=== PATIENT | male | born 1995 | race American Indian/Alaskan Native ===

== ENCOUNTER 2018-01-09 17:55 | Emergency (ER) | payer MEDICAID ==
[2018-01-09 18:25] VITALS: RESP 18
--- NOTE | 2018-01-09 19:20 | C.PDOC ---
History Of Present Illness 22 year old male presents to the ED complaining of left pectoralis chest wall discomfort for the last month and a half. 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 Time Seen by Provider: 01/09/18 19:07 Chief Complaint (Nursing): Chest Pain History Per: Patient History/Exam Limitations: no limitations Onset/Duration Of Symptoms: Days (x46) Current Symptoms Are (Timing): Still Present Quality: "Pain" Past Medical History Reviewed: Historical Data, Nursing Documentation, Vital Signs Vital Signs: Last Vital Signs Temp 98 F 01/09/18 19:28 Pulse 78 01/09/18 19:28 Resp 18 01/09/18 19:28 BP 126/76 01/09/18 19:28 Pulse Ox 98 01/09/18 19:28 Surgical History: No Surg Hx Family History: States: Unknown Family Hx - Social History Hx Alcohol Use: No Hx Substance Use: No - Immunization History Hx Tetanus Toxoid Vaccination: No Hx Influenza Vaccination: No Hx Pneumococcal Vaccination: No Review Of Systems Except As Marked, All Systems Reviewed And Found Negative. Cardiovascular: Positive for: Chest Pain (left pectoralis chest wall discomfort) Physical Exam - Physical Exam Appears: Non-toxic, No Acute Distress Skin: Warm, Dry Throat: Normal Neck: Normal, Supple Chest: Tenderness (mild tenderness to left pectoralis area, T2 midclavicular line left side) Cardiovascular: Rhythm Regular, No Murmur Respiratory: Normal Breath Sounds, No Rales, No Wheezing Gastrointestinal/Abdominal: Normal Exam, Soft, No Tenderness Extremity: Normal ROM (x4) Neurological/Psych: Oriented x3 Gait: Steady ED Course And Treatment ECG: Interpreted By Me ECG Rhythm: Sinus Rhythm ECG Interpretation: Normal Rate From EC O2 Sat by Pulse Oximetry: 100 (RA) Pulse Ox Interpretation: Normal Medical Decision Making Medical Decision Making: athelete, digitally and positionally reproducable pain @ L pectoralis area intercostal spaces c/w costochondritis. normal EKG no cardiac s/s. Disposition Doctor Will See Patient In The: Office Counseled Patient/Family Regarding: Studies Performed, Diagnosis - Disposition Referrals: Zayra Anthony MD [Medical Doctor] - Disposition: HOME/ ROUTINE Disposition Time: 19:19 Condition: GOOD Additional Instructions: ice packs to the affected area of your L chest as needed motrin 400-600 mg every 6 hours as needed normal exercise regimen. EKG is NORMAL- NO cardiac issues today Instructions: Costochondritis Forms: [facility] ([facility]) - Clinical Impression Clinical Impression: Chest wall discomfort - Scribe Statement The provider has reviewed the documentation as recorded by the Tayla Zavaleta Provider Attestation: All medical record entries made by the Jamesibkian were at my direction and personally dictated by me. I have reviewed the chart and agree that the record accurately reflects my personal performance of the history, physical exam, medical decision making, and the department course for this patient. I have also personally directed, reviewed, and agree with the discharge instructions and disposition.
[2018-01-09 19:28] VITALS: BP 126/76; PULSE 78; TEMP 98
[2018-01-09 23:24] VITALS: O2SAT 100
--- NOTE | 2018-01-12 22:08 | CARD ---
APPROVED REPORT EKG Measurement Heart [id number] <Conclusion> Sinus rhythm with sinus arrhythmia with occasional premature ventricular complexes Early repolarization Otherwise normal ECG
== END 2018-01-09 19:29 | disposition home or self-care (01) ==
LOC: C.ER 17:55
DX: R07.89 Other chest pain (principal)